=== PATIENT | male | born 1940 | race Two or more races ===

== ENCOUNTER 2017-12-18 10:34 | Outpatient (CLI) | payer OTHER | END 2017-12-18 11:44 | disposition home or self-care (01) | LOC: RAD 10:34 | DX: N20.0 Calculus of kidney (principal) ==

== ENCOUNTER 2018-02-13 15:11 | Outpatient (CLI) | payer OTHER | END 2018-02-13 15:17 | disposition home or self-care (01) | LOC: RAD 15:11 | DX: M12.9 Arthropathy, unspecified (principal); M19.90 Unspecified osteoarthritis, unspecified site ==

== ENCOUNTER 2018-09-01 09:14 | Outpatient (CLI) | payer OTHER | END 2018-09-01 09:53 | disposition home or self-care (01) | LOC: RAD 09:14 | DX: N20.0 Calculus of kidney (principal) ==

== ENCOUNTER 2018-11-04 14:25 | Outpatient (CLI) | payer OTHER | END 2018-11-04 14:29 | disposition home or self-care (01) | LOC: RAD 14:25 | DX: M16.31 Unilateral osteoarthritis resulting from hip dysplasia, right hip (principal); M16.12 Unilateral primary osteoarthritis, left hip ==

== ENCOUNTER 2018-11-24 08:59 | Emergency (ER) | payer OTHER ==
[~2018-11-24] VITALS: Ht 165.1 cm; Wt 88.9 kg
[2018-11-24] MEDS ORDERED: ASPIR 8181 MG (09:08)
[2018-11-24] MEDS ORDERED: COZAAR25 MG (09:08)
[2018-11-24] MEDS ORDERED: SYNTHROID125 MCG (09:08)
== END 2018-11-24 15:00 | disposition home or self-care (01) ==
LOC: ER 08:59
DX: R07.89 Other chest pain (principal); R10.13 Epigastric pain

== ENCOUNTER → 2018-12-31 | Outpatient (CLI) | payer OTHER ==
[~2018-12-31] MED LIST: ASPIR 8181 MG; COZAAR25 MG; SYNTHROID125 MCG
== END | disposition home or self-care (01) ==
LOC: NUCLEAR 07:00
DX: I25.10 Atherosclerotic heart disease of native coronary artery without angina pectoris (principal); R06.00 Dyspnea, unspecified
CPT/HCPCS: 78452; 93017; A9500

== ENCOUNTER 2019-03-09 08:19 | Outpatient (CLI) | payer OTHER | END 2019-03-09 08:20 | disposition home or self-care (01) | LOC: MAMO-SONO 08:19 | DX: N20.0 Calculus of kidney (principal) ==

== ENCOUNTER 2019-08-27 07:09 | Outpatient (CLI) | payer OTHER | END 2019-08-27 08:04 | disposition home or self-care (01) | LOC: NUCLEAR 07:09 | DX: I25.10 Atherosclerotic heart disease of native coronary artery without angina pectoris (principal); I10 Essential (primary) hypertension; Z98.62 Peripheral vascular angioplasty status; I47.1 Supraventricular tachycardia; G47.33 Obstructive sleep apnea (adult) (pediatric); R73.01 Impaired fasting glucose | CPT/HCPCS: 78452; 93017; A9500 ==

== ENCOUNTER 2020-02-11 10:04 | Outpatient (CLI) | payer OTHER | END 2020-02-11 11:39 | disposition home or self-care (01) | LOC: SONOGRAMA 10:04 | PROVIDERS: ATTEND Urology | DX: N20.0 Calculus of kidney (principal) ==

== ENCOUNTER → 2020-12-20 | Outpatient (CLI) | payer OTHER | END | disposition home or self-care (01) | LOC: MRI 08:07 | PROVIDERS: ATTEND Internal Medicine Cardiovascular Disease | DX: S96.812A Strain of other specified muscles and tendons at ankle and foot level, left foot, initial encounter (principal); M54.5 Low back pain; M25.572 Pain in left ankle and joints of left foot | CPT/HCPCS: 72148; 73718 ==

== ENCOUNTER 2023-10-23 10:41 | Outpatient (CLI) | payer OTHER | END 2023-10-23 10:49 | disposition home or self-care (01) | LOC: TOM 10:41 | PROVIDERS: ATTEND Internal Medicine Cardiovascular Disease | DX: I63.50 Cerebral infarction due to unspecified occlusion or stenosis of unspecified cerebral artery (principal); G45.9 Transient cerebral ischemic attack, unspecified ==

== ENCOUNTER 2024-05-20 08:37 | Outpatient (CLI) | payer OTHER | END 2024-05-20 08:40 | disposition home or self-care (01) | LOC: TOM 08:37 | PROVIDERS: ATTEND Internal Medicine Cardiovascular Disease | DX: R10.9 Unspecified abdominal pain (principal); K57.30 Diverticulosis of large intestine without perforation or abscess without bleeding; K40.90 Unilateral inguinal hernia, without obstruction or gangrene, not specified as recurrent ==

== ENCOUNTER 2024-06-15 09:25 | Outpatient (CLI) | payer OTHER | END 2024-06-15 09:29 | disposition home or self-care (01) | LOC: RAD 09:25 | PROVIDERS: ATTEND Internal Medicine Cardiovascular Disease | DX: R10.9 Unspecified abdominal pain (principal) ==

== ENCOUNTER 2025-02-18 10:49 | Outpatient (CLI) | payer OTHER | END 2025-02-18 10:52 | disposition home or self-care (01) | LOC: TOM 10:49 | PROVIDERS: ATTEND Urology | DX: N20.1 Calculus of ureter (principal) ==

== ENCOUNTER 2025-05-10 09:40 | Outpatient (CLI) | payer OTHER | END 2025-05-10 09:45 | disposition home or self-care (01) | LOC: TOM 09:40 | PROVIDERS: ATTEND Internal Medicine Cardiovascular Disease | DX: R10.9 Unspecified abdominal pain (principal); K81.9 Cholecystitis, unspecified; R31.9 Hematuria, unspecified | CPT/HCPCS: 74177; Q9965 ==

== ENCOUNTER 2025-07-09 12:55 | Outpatient (CLI) | payer OTHER ==
[~2025-07-09 12:55] MED LIST changes: +CARDURA1 MG; +HYDROCHLOROTHIA25 MG PO; +IRBESARTAN75 MG; +LEVOTHYROXINE25 MCG
== END 2025-07-09 12:57 | disposition home or self-care (01) ==
LOC: SONOGRAMA 12:55
PROVIDERS: ATTEND Urology
DX: N20.0 Calculus of kidney (principal)